=== PATIENT | female | born 1945 | race Caucasian/White ===

== ENCOUNTER 2020-03-12 15:47 | Emergency (ER) | payer MEDICARE, OTHER ==
[~2020-03-12] VITALS: Ht 152.4 cm; Wt 82.8 kg
[2020-03-12] MEDS ORDERED: ASPIRIN EC81 MG PO (16:04)
[2020-03-12] MEDS ORDERED: METOPROLOL SUCC50 MG PO (16:04)
[2020-03-12] MEDS ORDERED: ATORVASTATIN CA20 MG PO (16:04)
--- NOTE | 2020-03-12 16:39 | Emergency Department Note ---
History of Present Illnes History of Present Illness Chief Complaint: Laceration History of Present Illness This is a 74 year old female here for bleeding from varicose vein that she cut at about 1530 while shaving her legs. Bleeding was controlled with direct pressure. No lightheadness, dizziness, or syncope. Historian: Patient, Family Member Arrival Mode: Car Alignment Specialist Required: No Onset (how long ago): minute(s) Location: right latereal ankle Quality: No pain Radiation: Reports non-radiation Severity: unable to specify Onset quality: sudden Progression: resolved (with pressure dressing) Chronicity: new Relieving factors: other (direct pressure) Exacerbating factors: none Associated symptoms: Denies chest pain, Denies cough, Denies syncope, Denies weakness Treatments prior to arrival: other (direct pressure, pressure dressing) Past Medical/Family History Physician Review I have reviewed the patient's past medical and family history. Any updates have been documented here. Past Medical History Recent Fever: No Clinical Suspicion of Infectio: No New/Unexplained Change in Ment: No Past Medical History: Hypertension, CAD, Hyperlipedemia Other Medical History: arthritis fibromyalgia Past Surgical History: Cholecysctectomy, Hip Replacement, Knee Replacement, Orthopedic Implants Other Surgery: shoulder surgery Social History Smoking Cessation: Never Smoker Counseling Performed: No Alcohol Use: None Any Illegal Drug Use: No Physically hurt or threatened: No Other Any Pre-Existing Lines (PICC,: No Review of Systems Review of Systems Constitutional: Reports no symptoms EENTM: Reports no symptoms Cardiovascular: Reports as per HPI Respiratory: Reports no symptoms Gastrointestinal: Denies diarrhea, Denies nausea, Denies vomiting Genitourinary: Reports no symptoms Musculoskeletal: Reports no symptoms Integumentary: Reports as per HPI Neurological: Reports no symptoms Psychological: Reports no symptoms Endocrine: Reports no symptoms Physical Exam Related Data Allergies: Coded Allergies: latex (Verified Allergy, Severe, itching/rash/lip swelling, 03/12/20) erythromycin base (Verified Allergy, Intermediate, itching/vomiting, 03/12/20) Triage Vital Signs Vital Signs Date Time Temp Pulse Resp B/P (MAP) Pulse Ox O2 Delivery O2 Flow Rate FiO2 03/12/20 15:50 98.2 130 18 199/141 99 Room Air Physical Exam CONSTITUTIONAL Constitutional: Present well-developed, Present well-nourished HENT HENT: Present normocephalic, Present atraumatic, Present oropharynx c lear/moist, Present nose normal HENT L/R: Present left ext ear normal, Present right ext ear normal EYES Eyes: Reports PERRL, Reports conjunctivae normal NECK Neck: Present ROM normal PULMONARY Pulmonary: Present effort normal, Present breath sounds normal CARDIOVASCULAR Cardiovascular: Present regular rhythm, Present heart sounds normal, Present capillary refill normal, Present normal rate, Present other (Vericose veins extensive over bilateral LEs) GASTROINTESTINAL Abdominal: Present soft, Present nontender, Present bowel sounds normal GENITOURINARY Genitourinary: Present exam deferred SKIN Skin: Present other (pinpoint laceration over varicose vein over left lateral ankle. Initially no active bleeding when removed home pressure dressing of menstral pad and CAREY wrap. Dried blood cleaned off foot and bleed returned as continous ooze easily controlled with direct pressure. Applied surgiceal follwed by 4X4 and Coban for pressure dressing. Bleeding well controlled.) MUSCULOSKELETAL Musculoskeletal: Absent deformity, Absent tenderness, Absent swelling NEUROLOGICAL Neurological: Present alert, Present oriented x 3, Present no gross motor or sensory deficits PSYCHOLOGICAL Psychological: Present mood/affect normal, Present judgement normal Procedures Burn Care/Dressing Burn Care : Burn dressing site: right lower extremity Debridement necessary: No Type of dressing: dry sterile Neurovascular intact post dres: Yes Patient tolerated procedure: well Additional comments See PE for details Assessment & Plan Medical Decision Making MDM Patient with bleeding from pinpoint size laceration to varicose vein over left ankle. Bleeding controlled with pressure dressing. Patient instructed to use electric razor and to control blood pressure. Assessment & Plan Final Impression: (1) Hypertension (2) Varicose veins of both lower extremities with complications Depart Disposition: HOME, SELF-CARE Last Vital Signs Date Time Temp Pulse Resp B/P (MAP) Pulse Ox O2 Delivery O2 Flow Rate FiO2 03/12/20 15:50 98.2 130 18 199/141 99 Room Air Home Meds Reported Medications Aspirin (ASPIRIN EC) 81 Mg Tablet.dr, 81 MG PO DAILY, #30 TAB 03/12/20 Metoprolol Succinate (METOPROLOL SUCCINATE) 50 Mg Tab.er.24h, 50 MG PO DAILY, MG 03/12/20 Atorvastatin Calcium (ATORVASTATIN CALCIUM) 20 Mg Tablet, 20 MG PO HS, #30 TAB 03/12/20 SAJI SOLORZANO MD Mar 12, 2020 16:39
[2020-03-12 16:50] VITALS: BP 160/77
== END 2020-03-12 16:39 | disposition home or self-care (01) ==
LOC: FSED 15:47
DX: I83.893 Varicose veins of bilateral lower extremities with other complications (principal); I10 Essential (primary) hypertension; I25.10 Atherosclerotic heart disease of native coronary artery without angina pectoris; E78.5 Hyperlipidemia, unspecified; M79.7 Fibromyalgia
CPT/HCPCS: 99283

== ENCOUNTER 2020-05-22 11:52 | Emergency (ER) | payer MEDICARE, OTHER ==
[~2020-05-22] VITALS: Ht 152.4 cm; Wt 80.4 kg
[~2020-05-22 11:52] MED LIST: ASPIRIN EC81 MG PO; ATORVASTATIN CA20 MG PO; METOPROLOL SUCC50 MG PO
[2020-05-22] MEDS ORDERED: ULTRAM50 MG PO (12:16)
[2020-05-22] MEDS ORDERED: LORTAB 10 MG-3473 ML PO (12:16)
[2020-05-22] MEDS ORDERED: VITAMIN D310 MCG (12:46)
[2020-05-22] MEDS ORDERED: VITAMIN C500 M6 (12:46)
[2020-05-22] MEDS ORDERED: MULTI-VITAMIN1 EACH (12:46)
[2020-05-22] MEDS ORDERED: OMEPRAZOLE40 MG (12:46)
[2020-05-22] MEDS ORDERED: TRIAMTERENE-HCTZ1 EA PO (12:46)
[2020-05-22] MEDS ORDERED: ATIVAN1 MG (12:46)
[2020-05-22] MEDS ORDERED: ZINC SULFATE220 M1 (12:46)
[2020-05-22] MEDS ORDERED: AZITHROMYCIN 500MG/NS 250 ML 250 ML IV ONE (15:15)
[2020-05-22] MEDS ORDERED: CEFTRIAXONE SOD 1 GM/NS 50 ML 50 ML IV ONE ×2 (15:15→15:42)
[2020-05-22] MEDS ORDERED: DEXAMETHASONE SOD PHOS INJ 4 MG/ML VIAL IV ONE (15:15)
[2020-05-22] MEDS ORDERED: FUROSEMIDE INJ 10 MG/ML 2 ML VIAL IV ONE (15:15)
[2020-05-22] MEDS ORDERED: POTASSIUM CHLORIDE 20 MEQ TAB CR PO STA (15:36)
[2020-05-22] MEDS ORDERED: ONDANSETRON HCL INJ 2MG/ML 2ML 2 MG/ML VIAL IV STA ×2 (15:40→17:02)
[2020-05-22] MEDS ORDERED: DEXAMETHASONE SOD PHOS INJ 4 MG/ML VIAL ONE (15:41)
[2020-05-22] MEDS ORDERED: AZITHROMYCIN 500MG/NS 250 ML 250 ML ONE (15:42)
[2020-05-22] MEDS ORDERED: FUROSEMIDE INJ 10 MG/ML 4 ML VIAL ONE (15:42)
[2020-05-22] MEDS ORDERED: POTASSIUM CHLORIDE 20 MEQ TAB CR PO ONE (15:42)
[2020-05-22] MEDS ORDERED: HYDROCODONE/APAP 5MG-325MG TAB PO ONE (15:45)
[2020-05-22] MEDS ORDERED: HYDROCODONE/APAP 5MG-325MG TAB ONE (15:48)
[2020-05-22] MEDS ORDERED: ONDANSETRON HCL INJ 2MG/ML 2ML 2 MG/ML VIAL ONE ×2 (15:48→17:10)
[2020-05-22] MEDS ORDERED: HYDRALAZINE HCL 20 MG/ML VIAL IV STA (16:11)
[2020-05-22] MEDS ORDERED: HYDRALAZINE HCL 20 MG/ML VIAL ONE (16:20)
[2020-05-22] MEDS ORDERED: ENOXAPARIN SODIUM INJ 100 MG/ML SYR SC SCH (17:00)
[2020-05-22] MEDS ORDERED: SODIUM CHLORIDE 0.9% 50ML 50 ML ONE (17:08)
[2020-05-22] MEDS ORDERED: IOPAMIDOL 370 MG/ML 200 ML INFUS..BTL INJ ONE (17:09)
[2020-05-22] MEDS ORDERED: ENOXAPARIN SODIUM INJ 100 MG/ML SYR SC ONE (17:11)
== END 2020-05-22 18:05 | disposition other institution (70) ==
LOC: FSED 12:30
DX: U07.1 COVID-19 (principal); J18.9 Pneumonia, unspecified organism; R07.89 Other chest pain; R05 Cough; J44.9 Chronic obstructive pulmonary disease, unspecified; I10 Essential (primary) hypertension; M54.6 Pain in thoracic spine; S22.069S Unspecified fracture of T7-T8 vertebra, sequela; W18.30XD Fall on same level, unspecified, subsequent encounter
CPT/HCPCS: 71046; 71260; 80053; 81003; 82553; 84484; 85025; 93005; 96374; 96375; 99284; J0360; J0456; J0696; J1100; J1650; J1940; J2405; Q9967